=== PATIENT | female | born 1965 | race Caucasian/White ===

== ENCOUNTER 2018-09-17 21:26 | Emergency (ER) | payer MEDICAID ==
[~2018-09-17] VITALS: Ht 149.9 cm; Wt 78.9 kg
[2018-09-17 21:30] VITALS: Ht 149.9 cm; Wt 78.9 kg
[2018-09-18 00:44] VITALS: BP 115/56
== END 2018-09-18 00:44 | disposition home or self-care (01) ==
LOC: ED 21:26
DX: G51.0 Bell's palsy (principal); Z88.0 Allergy status to penicillin; Z98.890 Other specified postprocedural states
CPT/HCPCS: 82962; J1885; J7512